=== PATIENT | female | born 1955 | race American Indian/Alaskan Native ===

== ENCOUNTER 2016-06-01 11:00 | Outpatient (CLI) | payer OTHER ==
--- NOTE | 2016-06-01 13:40 | Mammography Report ---
BILATERAL DIGITAL SCREENING MAMMOGRAM with CAD: 06/01/16 11:00:00 CLINICAL: Routine screening. COMPARISON: None available. FINDINGS: There are bilateral scattered areas of fibroglandular density.No mass, architectural distortion or suspicious calcifications. IMPRESSION: No mammographic evidence of malignancy. BI-RADS CATEGORY: 1 -- Negative RECOMMENDATION: Routine mammographic screening in one year. COMMENT: Patient follow-up letters are generated by our [employer] application.
== END 2016-06-01 11:01 | disposition home or self-care (01) ==
LOC: SPVWC 11:00
PROVIDERS: ATTEND Internal Medicine
DX: Z12.31 Encounter for screening mammogram for malignant neoplasm of breast (principal)
CPT/HCPCS: 77067; G0202

== ENCOUNTER 2017-10-08 09:08 | Outpatient (CLI) | payer OTHER ==
--- NOTE | 2017-10-08 11:06 | Mammography Report ---
BILATERAL MAMMOGRAM: FINDINGS: There are scattered fibroglandular densities (approximately 25%-50% glandular). No mass, distortion, suspicious calcification, or skin change is seen. No significant change compared to prior exam in May 2016. CAD was utilized. IMPRESSION: Negative mammogram. There is no mammographic evidence of malignancy. RECOMMENDATION: Follow-up per ACS guidelines. BI-RADS CATEGORY: 1 = Negative ACR BI-RADS MAMMOGRAPHIC CODES: 0 = Needs additional imaging evaluation; 1 = Negative; 2 = Benign; 3 = Probably benign; 4 = Suspicious; 5 = Malignant; 6 = Known biopsy-proven malignancy COMMENT: 1. Dense breast tissue, i.e., adenosis, fibrocystic changes, etc., may obscure an underlying neoplasm. 2. Approximately 10% of cancers are not detected with mammography. 3. A negative mammography report should not delay biopsy if a clinically suspicious mass is present. COMMENT: Patient follow-up letters are generated in [employer].
== END 2017-10-08 09:09 | disposition home or self-care (01) ==
LOC: SPVWC 09:08
PROVIDERS: ATTEND Internal Medicine
DX: Z12.31 Encounter for screening mammogram for malignant neoplasm of breast (principal)
CPT/HCPCS: 77067

== ENCOUNTER 2021-02-21 10:15 | Outpatient (CLI) | payer OTHER ==
--- NOTE | 2021-02-21 12:16 | XRay Report ---
BILATERAL KNEES AP VIEW STANDING INDICATION: OSTEOARTHRITIS OF KNEE,UNSPECIFIED. COMPARISON: None. IMPRESSION: Normal bone mineralization. Moderate medial compartment joint space narrowing and mild tibial spine spurring is identified in the right knee. Severe medial compartment joint space narrowin g and moderate tibial spine spurring is identified in the left kidney. A mild varus deformity is sugg ested on the left side. No acute bony abnormality or bone lesion. Signer Name: Vicente Meyer Jr, MD Signed: 02/21/2021 12:12 PM Workstation Name: [id number]
== END 2021-02-21 10:16 | disposition home or self-care (01) ==
LOC: XRAY 10:15
PROVIDERS: ATTEND Orthopaedic Surgery
DX: M17.0 Bilateral primary osteoarthritis of knee (principal)
CPT/HCPCS: 73565